=== PATIENT | female | born 1945 | race Caucasian/White ===

== ENCOUNTER 2017-05-23 15:10 | Emergency (ER) | payer MEDICARE, BC ==
[2017-05-23 15:33] VITALS: BP 111/86
--- NOTE | 2017-05-23 15:33 | UC ---
Skin Complaint HPI - HPI Summary HPI Summary: 71 y/o male presents to the urgent care c/o tick bite on the right wrist since yesterday. Pt was out hiking and at night time she noticed a red spot in RT wrist. Pt denies HX of tick bite, or HX of Lyme disease. Pt denies fever. ASHLEY, joint pain, SOB, chest pain, N/V/D - History of Current Complaint Time Seen by Provider: 05/23/17 15:30 Stated Complaint: TICK BITE Hx Obtained From: Patient Hx Last Menstrual Period: Pt menopausal ?: No Onset/Duration: Sudden Onset, Lasting Days - 1 day Skin Exposure Onset/Duration: Days Ago - 1 day Timing: Constant Onset Severity: Mild Current Severity: Mild Pain Intensity: 2 Pain Scale Used: 0-10 Numeric Location: Discrete - AT RT wrist Character: Redness Aggravating: Touch Alleviating: Nothing Associated Signs & Symptoms: Positive: Negative. Negative: Fever, Chills, Rash , Red Streaks Related History: Possible Reaction to: Insect - Allergy/Home Medications Allergies/Adverse Reactions: Allergies Allergy/AdvReac Type Severity Reaction Status Date / Time Fluoxetine [From [facility]] Allergy Unknown Verified 06/10/15 07:58 Reaction Details artificial sweetners Allergy Intermediate Difficulty Uncoded 06/10/15 07:58 Breathing/Wheezing Home Medications: Home Medications Alendronate TAB (NF) [Fosamax TAB (NF)] 10 mg PO DAILY 05/23/17 [History Confirmed 05/23/17] clonazePAM TAB(*) [Klonopin TAB(*)] 1 cap PO DAILY 05/23/17 [History Confirmed 05/23/17] Review of Systems Constitutional: Negative Skin: Rash - RT wrist with tick bite Eyes: Negative ENT: Negative Respiratory: Negative Cardiovascular: Negative Gastrointestinal: Negative Genitourinary: Negative Motor: Negative Neurovascular: Negative Musculoskeletal: Negative Neurological: Negative Psychological: Negative Is Patient Immunocompromised?: No All Other Systems Reviewed And Are Negative: Yes PMH/Surg Hx/FS Hx/Imm Hx Previously Healthy: Yes Other Endocrine History: Osteoporosis Psychological History: Depression - Surgical History Surgical History: Yes Surgery Procedure, Year, and Place: Tonsillectomy, appendectomy - Family History Known Family History: Positive: Cardiac Disease, Hypertension, Diabetes - Social History Alcohol Use: None Substance Use Type: None Smoking Status (MU): Never Smoked Tobacco Have You Smoked in the Last Year: No Physical Exam Triage Information Reviewed: Yes Appearance: Well-Appearing, No Pain Distress, Well-Nourished, Thin Vital Signs Reviewed: Yes Eye Exam: Normal Eyes: Positive: Conjunctiva Clear - PERRLA, EOMI, ENT Exam: Normal ENT: Positive: Normal ENT inspection, Hearing grossly normal, Pharynx normal, TMs normal Dental Exam: Normal Neck exam: Normal Neck: Positive: Supple, Nontender, No Lymphadenopathy Respiratory Exam: Normal Respiratory: Positive: Chest non-tender, Lungs clear, Normal breath sounds Cardiovascular Exam: Normal Cardiovascular: Positive: RRR, No Murmur, Pulses Normal Abdominal Exam: Normal Abdomen Description: Positive: Nontender, No Organomegaly, Soft. Negative: CVA Tenderness (R), CVA Tenderness (L) Bowel Sounds: Positive: Present Musculoskeletal Exam: Normal Musculoskeletal: Positive: Strength Intact, ROM Intact, No Edema Neurological Exam: Normal Psychological Exam: Normal Skin: Positive: rashes - RT wrist with a discrete erythematous rash s/p tick bite, non tender to palaption, no swelling observed, FROM of RT wrist. positive pulses,capillary refill brisk, positive sensation. Course/Dx - Course Course Of Treatment: 71 y/o male presents to the urgent care c/o tick bite on the right wrist since yesterday. Pt was out hiking and at night time she noticed a red spot in RT wrist. Pt denies HX of tick bite, or HX of Lyme disease. Pt denies fever. ASHLEY, joint pain SOB, chest pain, N/V/D. HX obtained. Pt with a discrete red rash s/p tick bite. No tick bite removed. Antibiotic prophylaxis with Doxycycline 200mg PO given to the patient to prevent lyme Disease.. Pt tolerated well medication. Pt advised to observe the area for the development or Erythema Migrans for upto 30 days following exposure. Components of the tick saliva can cause transient erythema that should not be confused with Erythema Migrans. Pt understood and agreed with D/C instructions and left the clinic ambulating. - Differential Diagnoses - Skin Complaint Differential Diagnoses: Abscess, Cellulitis, Local Allergic Reaction, Tick Born Illness, Other - bug bite. - Diagnoses Provider Diagnoses: 1- RT wrist rash s/p tick bite Discharge - Discharge Plan Condition: Stable Disposition: HOME Patient Education Materials: Tick Bite (ED) Referrals: Robin Kaufman MD [Primary Care Provider] - 1 Week Additional Instructions: 1-Please observe your body for the development or Erythema Migrans for up to 30 days following exposure. Components of the tick saliva can cause transient erythema that should not be confused with Erythema Migrans. Antibiotic prophylaxis with Doxycycline PO given today to prevent lyme Disease. 2- If ypou develop fever, joint pain or the bull's eye rash please return to the Urgent care or your PCP for further evaluation and treatment
[2017-05-23] MEDS ORDERED: DOXYcycline CAP(*) 100 MG PO ONE (15:57)
== END 2017-05-23 16:19 | disposition home or self-care (01) ==
LOC: UCEAST 15:10
DX: R21 Rash and other nonspecific skin eruption (principal); S60.861A Insect bite (nonvenomous) of right wrist, initial encounter; W57.XXXA Bitten or stung by nonvenomous insect and other nonvenomous arthropods, initial encounter; Y93.9 Activity, unspecified; Y92.9 Unspecified place or not applicable; Y99.9 Unspecified external cause status; F32.9 Major depressive disorder, single episode, unspecified
CPT/HCPCS: 99212; A9270-GY; G0463

== ENCOUNTER 2019-08-23 11:07 | Observation (INO) | payer MEDICARE, BC ==
--- NOTE | 2019-08-23 13:19 | ED ---
Back Pain - HPI Summary HPI Summary: Patient is a 73-year-old female who presents emergency department for low back pain 2 days. Patient does not recall any falls or injuries. Pain is located to low back and does not radiate. Patient resides at [facility] and fell on-call physician there today was noted to have fever and was referred to the ER. Patient denies associated symptoms of headache, cough, chest pain, shortness of breath, abdominal pain, vomiting, diarrhea, urinary symptoms. Patient denies numbness, tingling or weakness, bowel or bladder incontinence or retention, saddle paresthesias. Past medical history of bipolar disorder. Symptoms are moderate in severity. Movement makes symptoms worse. Nothing makes symptoms better. - History of Current Complaint Chief Complaint: EDBackInjuryPain Stated Complaint: BACK PAIN PER PT Time Seen by Provider: 08/23/19 13:18 Hx Obtained From: Patient Hx Last Menstrual Period: Pt menopausal Pain Intensity: 10 - Allergies/Home Medications Allergies/Adverse Reactions: Allergies Allergy/AdvReac Type Severity Reaction Status Date / Time fluoxetine Allergy Unknown Unknown Verified 08/24/19 00:44 Reaction Details triamcinolone Allergy Pain Verified 08/23/19 11:14 Home Medications: Home Medications Calcium Carb/Mag Ox/Zinc Sulf [Calcium & Magnesium + Zin 334-134-5 mg] 1 tab PO DAILY 08/24/19 [History Confirmed 08/24/19] Proventil Hfa 2 puff INH Q6H PRN 08/24/19 [History Confirmed 08/24/19] PMH/Surg Hx/FS Hx/Imm Hx Previously Healthy: Yes Endocrine/Hematology History: Denies: Hx Diabetes, Hx Thyroid Disease Cardiovascular History: Denies: Hx Hypertension, Other Cardiovascular Problems/Disorders Respiratory History: Reports: Hx Asthma Denies: Hx Chronic Obstructive Pulmonary Disease (COPD) GI History: Denies: Hx Ulcer, Other GI Disorders Musculoskeletal History: Denies: Hx Rheumatoid Arthritis, Hx Osteoporosis, Other Musculoskeletal History Sensory History: Reports: Hx Cataracts - JAVI, Hx Contacts or Glasses - GLASSES, Hx Hearing Aid - JAVI Opthamlomology History: Reports: Hx Cataracts - JAVI, Hx Contacts or Glasses - GLASSES Neurological History: Denies: Other Neuro Impairments/Disorders Psychiatric History: Reports: Hx Depression - ON MEDS - Cancer History Hx Chemotherapy: No Hx Radiation Therapy: No - Surgical History Surgery Procedure, Year, and Place: Tonsillectomy, appendectomy Hx Anesthesia Reactions: No Infectious Disease History: No Infectious Disease History: Denies: Hx Clostridium Difficile, Hx Hepatitis, Hx Human Immunodeficiency Virus (HIV), Hx of Known/Suspected MRSA, Hx Shingles, Hx Tuberculosis, Hx Known/ Suspected VRE, Hx Known/Suspected VRSA, History Other Infectious Disease, Traveled Outside the [place] in Last 30 Days - Family History Known Family History: Positive: None, Cardiac Disease, Hypertension, Diabetes - Social History Alcohol Use: None Substance Use Type: Reports: None Smoking Status (MU): Never Smoked Tobacco Have You Smoked in the Last Year: No Review of Systems Positive: Fever, Chills Eyes: Negative ENT: Negative Cardiovascular: Negative Negative: Palpitations, Chest Pain Respiratory: Negative Negative: Shortness Of Breath, Cough Gastrointestinal: Negative Negative: Abdominal Pain, Vomiting, Diarrhea Genitourinary: Negative Skin: Negative Neurological: Negative All Other Systems Reviewed And Are Negative: Yes Physical Exam Triage Information Reviewed: Yes Vital Signs On Initial Exam: Initial Vitals Temp Pulse Resp BP Pulse Ox 101.1 F 86 16 148/72 100 08/23/19 11:07 08/23/19 11:07 08/23/19 11:07 08/23/19 11:07 08/23/19 11:07 Vital Signs Reviewed: Yes Appearance: Positive: Well-Appearing - Pt. sitting in chair in NAD. Cheeks are flushed. present. Skin: Positive: Warm, Dry Head/Face: Positive: Normal Head/Face Inspection Eyes: Positive: Normal, EOMI, TIAGO Neck: Positive: Supple Respiratory/Lung Sounds: Positive: Clear to Auscultation, Breath Sounds Present Cardiovascular: Positive: Normal, RRR Abdomen Description: Positive: Nontender, Soft, Other: - Mild bilaterally CVA tenderness. Musculoskeletal: Positive: Normal, Strength/ROM Intact, Other - Low lumbar midline tenderness. Neurological: Positive: Normal, Alert, Oriented to Person Place, Time, CN Intact II-III Psychiatric: Positive: Affect/Mood Appropriate Diagnostics - Vital Signs Vital Signs Temp Pulse Resp BP Pulse Ox 08/23/19 11:07 101.1 F 86 16 148/72 100 - Laboratory Result Diagrams: 08/24/19 05:51 08/24/19 05:51 Lab Statement: Any lab studies that have been ordered have been reviewed, and results considered in the medical decision making process. Re-Evaluation - Re-Evaluation First Eval Change: Unchanged Comment: pain is fine, see feels that fever is returning Second Eval Re-Evaluation Time: 21:57 Comment: attempted to ambulate patient and unable to do so Back Pain Course/Dx - Course Course Of Treatment: Pt. with midline lumbar tenderness and fever. She does have mild bilateral CVA tenderness as well. No neurodeficits or evidence of cauda equina syndrome. Given fever, labs and ct ordered for further evaluation. Tylenol given for fever. CBC shows normal WBC. Minimally decreased Na and Cl. CXR negative for acute findings. CT per radiology: IMPRESSION: #. No CT findings to suggest presence of osteomyelitis discitis however MRI with IV. contrast would facilitate the most sensitive assessment if there is persistent clinical. concern. #. Multilevel degenerative spondylosis and facet joint osteoarthritis. #. Cholelithiasis. #. Prominent LEFT gonadal vein which may be secondary to incompetent venous valves or. pelvic congestion syndrome. Case discussed with Dr. Watkins. U/A postive RBCs without infection. Will obtain ct abd/pelvis to r/o urolithiasis. Pt. given a dose of IV morphine. Dr. Watkins recommends MRI with contrast to r/o epidural abscess/discitis. Pt. will be signed out to RONY Colin for MRI results and disposition. - Diagnoses Differential Diagnosis/HQI/PQRI: Positive: Arthritis, Epidural Abscess, Fracture , Herniated Disc, Neoplasm, Osteomyelitis, Renal Colic, Strain, Sprain Provider Diagnoses: Back pain, Fever Discharge ED - Sign-Out/Discharge Documenting (check all that apply): Sign-Out Patient Signing out patient TO: Ro Black - Discharge Plan Condition: Stable Disposition: ADMITTED TO [facility] - Billing Disposition and Condition Condition: STABLE Disposition: Admitted to [facility]
[2019-08-23] MEDS ORDERED: Acetaminophen TAB* 325 MG PO ONE ×2 (13:31→19:34)
[2019-08-23 14:25] LABS: ABS Lymphocytes 0.7 10^3/ul (1.0-4.8); ABS Monocytes 0.8 10^3/ul (0-0.8); ABS Neutrophils 6.1 10^3/ul (1.5-7.7); Eosinophil % 0.4 %; Hematocrit 40 % (35-47); Hemoglobin 13.8 g/dL (12.0-16.0); Lymphocyte % 8.9 %; Mean Corpuscular HGB Conc 34 g/dL (31-36); Mean Corpuscular Hemoglobin 33 pg (27-31); Mean Corpuscular Volume 96 fL (80-97); Mean Platelet Volume 9.5 fL (7.4-10.4); Platelet Count 186 10^3/uL (150-450); Red Blood Count 4.17 10^6 /uL (3.70-4.87); Red Cell Distribution Width 14 % (10-15); White Blood Count 7.7 10^3/uL (3.5-10.8)
--- OUTSIDE RECORDS SUMMARY | 2019-08-23 14:29 | XMS REPORT | Continuity of Care Document ---
:1945 External Reference #:[id number] Author Name Shana Skinner NP (transmitted by agent of provider Francesca Elena) Address [email or web address] [facility], [address] [place] [address] Care Team Providers Name Role Phone Beverly Verde MD - Internal Care Team Information Balance Sheet Analyst [phone] Medicine Charity Castillo MD - Internal Medicine Care Team Information Balance Sheet Analyst [phone] Problems Active Problems Provider Date Anxiety disorder Tri Marcum, N.P. Onset: 03/01/2018 Asthma Tri Marcum, N.P. Onset: 03/01/2018 Muscle weakness Tri Marcum, N.PThomas Onset: 03/01/2018 Social History Type Date Description Comments Sex Unknown Tobacco Use Start: Unknown Never Smoked Cigarettes Smoking Status Reviewed: 07/03/19 Never Smoked Cigarettes ETOH Use Never used alcohol Tobacco Use Start: Unknown Patient has never smoked Recreational Drug Use Never Used Drugs Exercise Type/Frequency Exercises regularly Allergies, Adverse Reactions, Alerts Active Allergies Reaction Severity Comments Date Prozac Severe 04/18/2019 Medications Active Medications SIG Qnty Indications Ordering Provider Date Flonase Allergy 1 spray in each 9.900ml J30.9 Tri Marcum, 01/24/2019 Relief nostril daily as N.P. 50mcg/Act needed Suspension Depakote ER 1 tab po qhs Unknown 500mg Tablets ER 24HR Juice Plus Fibre 6 caps po qam Unknown Liquid Proventil HFA 2 puffs as 6.700gm Tri Marcum, needed N.P. 108(90Base) mcg/Act Aerosol Bplehiu-Mzndvdbmx-Zzk 1 by mouth every Unknown c day 333-133-5mg Tablets [facility] Vitamin B12 1 by mouth 4x Unknown 1000mcg week Tablets D3 Super Strength take one Unknown capsule/tablet 2000Unit Capsules daily by mouth Immunizations Description No Information Available Vital Signs Date Vital Result Comment 07/03/2019 9:08am Height 64 inches 5'4" Weight 154.00 lb Heart Rate 72 /min BP Systolic Sitting 112 mmHg Lue regular cuff BP Diastolic Sitting 66 mmHg Lue regular cuff Respiratory Rate 12 /min O2 % BldC Oximetry 98 % BMI (Body Mass Index) 26.4 kg/m2 05/03/2019 12:36pm Height 64 inches 5'4" Weight 154.00 lb Heart Rate 68 /min BP Systolic Sitting 110 mmHg Lue regular cuff BP Diastolic Sitting 66 mmHg Lue regular cuff Respiratory Rate 16 /min O2 % BldC Oximetry 96 % BMI (Body Mass Index) 26.4 kg/m2 Results Test Date Facility Test Result H/L Range Note Laboratory test 04/30/2019 [facility] Gardnerella/Ye SEE RESULT 1, [address] ast: [place] [address] Dna [phone] Culture Genital & Sensitivity SEE RESULT BELOW 3 1 [id number] SEE RESULT BELOW Name: JONNY FERNÁNDEZ : [address]: Tri Marcum NP Acct: [id number] Unit: [id number] AGE: 73 Location: [facility] Re04/30/19 SEX: F Status: REG REF SPEC: [id number] HONG: 04/30/19-[address] [facility] [address]: Tri Marcum RISK ENGINEER REQ: [id number] RECD: 05/01/19-8316 EXPLICIT FAX#: [id number] STATUS: RES [facility] : Kat _ SOURCE: VAGINAL SPDESC: ORDERED: Genital Culture, Clint,Yeast DNA COMMENTS: [id number] QUERIES: Would you like to order Trichomonas Vaginalis testing? No Procedure Result Reported Site Genital Culture PENDING Gardnerella/Yeast: Vaginal DNA Final 05/02/19- 1612 ML Organism 1 Negative Gardnerella Organism 2 Negative Theodora The presence of G. vaginalis, although suggestive, is not diagnostic for bacterial vaginosis. Results should be interpreted in conjuction with other clinical and laboratory data available. Women with vaginal discharge should be evaluated for risk factors of cervicitis and pelvic inflammatory disease, toxic shock syndrome (S.aureus), and if present, evaluated for organisms not included in this assay such as N. gonorrhoeae, C. trachomatis, Mobiluncus, Mycoplasma and/or Prevotella. Mixed infections may occur. The performance of this test on patient specimens collected during or immediately after antimicrobial therapy is unknown. The presence or absence of Theodora species, or G. vaginalis cannot be used as a test for therapeutic success or failure. * - Main Lab . END OF REPORT DEPARTMENT OF PATHOLOGY, [address] [place] [address] Manuel Rubalcava M.D. Director [facility] # [id number] 3 SEE RESULT BELOW Name: JONNY FERNÁNDEZ : [address]: Tri Marcum NP Acct: [id number] Unit: [id number] AGE: 73 Location: [facility] Re04/30/19 SEX: F Status: REG REF SPEC: [id number] HONG: 04/30/19-[address]: Tri Marcum NP REQ: [id number] RECD: 05/01/19-1236 EXPLICIT FAX#: [id number] STATUS: BEVERLY GUILLERMO DR: Kat _ SOURCE: VAGINAL SPDESC: ORDERED: Genital Culture, Clint,Yeast DNA COMMENTS: [id number] QUERIES: Would you like to order Trichomonas Vaginalis testing? No Procedure Result Reported Site Genital Culture Final 05/03/19- 0914 ML Organism 1 NORMAL GIUSEPPE Quantity 3+ Routine genital cultures do not include selective agar for Neisseria gonorrhoeae. Molecular testing offers better test sensitivity and therefore is the preferred test methodology for identifying this organism. Gardnerella/Yeast: Vaginal DNA Final 05/02/19- 1612 ML Organism 1 Negative Gardnerella Organism 2 Negative Theodora The presence of G. vaginalis, although suggestive, is not diagnostic for bacterial vaginosis. Results should be interpreted in conjuction with other clinical and laboratory data available. Women with vaginal discharge should be evaluated for risk factors of cervicitis and pelvic inflammatory disease, toxic shock syndrome (S.aureus), and if present, evaluated for organisms not included in this assay such as N. gonorrhoeae, C. trachomatis, Mobiluncus, Mycoplasma and/or Prevotella. Mixed infections may occur. The performance of this test on patient specimens collected during or immediately after antimicrobial therapy is unknown. The presence or absence of Theodora species, or G. vaginalis cannot be used as a test for therapeutic success CONTINUED ON NEXT PAGE DEPARTMENT OF PATHOLOGY, [address] [place] [address] Manuel Rubalcava M.D. Director [facility] # [id number] Patient: JONNY FERNÁNDEZ [id number] (Continued) Specimen: [id number] Collected: 04/30/19-1529 Received: 05/01/19-1236 (Continued) Procedure Result Reported Site Gardnerella/Yeast: Vaginal DNA Final (continued) 05/02/19- 1612 or failure. * ML - Main Lab . END OF REPORT DEPARTMENT OF PATHOLOGY, [address] [place] [address] Manuel Rubalcava M.D. Director [facility] # [id number] Procedures Date Code Description Status 04/20/2019 74886 Sleep Study Unattended,HRT Rate,Oxygen Sat,Resp Completed Effort/Airflow Medical Devices Description No Information Available Encounters Type Date Location Provider Dx Diagnosis Office Visit 07/03/2019 [facility] Shana G47.33 Obstructive sleep 9:30a [facility] apnea (adult) Krissy (pediatric) R53.83 Other fatigue Office Visit 05/03/2019 [facility]ana G47.33 Obstructive sleep 1:00p [facility] apnea (adult) Krissy (pediatric) R53.83 Other fatigue Office Visit 04/30/2019 1:18p [facility] Nursing Tri Marcum, N76.0 Acute vaginitis Home N.P. Office Visit 04/18/2019 11:00a [facility] Wilma Merritt, R06.83 Snoring [facility] R53.83 Other fatigue Assessments Date Code Description Provider 07/03/2019 G47.33 Obstructive sleep apnea (adult) (pediatric) Shana Skinner NP 07/03/2019 R53.83 Other fatigue Shana Skinner NP 05/03/2019 G47.33 Obstructive sleep apnea (adult) (pediatric) Shana Skinner NP 05/03/2019 R53.83 Other fatigue Shana Skinner NP 04/30/2019 N76.0 Acute vaginitis Tri Marcum, N.P. 04/20/2019 G47.33 Obstructive sleep apnea (adult) (pediatric) Wilma Merritt MD 04/18/2019 R06.83 Snoring Wilma Merritt MD 04/18/2019 R53.83 Other fatigue Wilma Merritt MD 01/24/2019 J30.9 Allergic rhinitis, unspecified Mariam Brody NP Plan of Treatment Future Appointment(s):01/02/2020 10:30 am - Shana Skinner NP at [facility]07/03/2019 - Shana Skinner, NPG47.33 Obstructive sleep apnea (adult) (pediatric)Follow up:6 monthsRecommendations:If you have difficulty with your equipment, or need to replace your mask or hoses, please contact your homecare agency, [facility] . If you have any further questions, pleasecall the [facility] at If you have any sleepiness while driving you MUST avoid operating a vehicle or machinery. If you feel tired while driving, washing machine loader and puller and take a nap or switch drivers. If you know you are sleepy and need to go somewhere, arrange for a ride or use public transportation. It is very important to not risk your safety or the safety of others.R53.83 Other fatigue Functional Status Description No Information Available Mental Status Description No Information Available Referrals Description No Information Available
[2019-08-23 14:47] LABS: Albumin 4.6 g/dL (3.2-5.2); Albumin/Globulin Ratio 1.4 (1-3); BUN/Creatinine Ratio 32.1 (8-20); C Reactive Protein 99.58 mg/L (<8.01); Calcium 10.1 mg/dL (8.6-10.3); EGFR Non-African American 105.8 (>60); Globulin 3.4 g/dL (2-4); Total Bilirubin 0.6 mg/dL (0.2-1.0)
[2019-08-23] MEDS ORDERED: Morphine 4 MG/ML VIAL (1 ml) 4 MG/ML VIAL IV ONE ×2 (15:37→17:52)
[2019-08-23] MEDS ORDERED: Ondansetron INJ* 2 MG/ML VIAL IV ONE (15:37)
[2019-08-23 16:10] LABS: Urine Appearance Clear; Urine Bilirubin Negative (Negative); Urine Blood 1+ (Negative); Urine Color Yellow; Urine Glucose Negative (Negative); Urine Ketones 1+ (Negative); Urine Nitrite Negative (Negative); Urine Protein Negative (Negative); Urine Urobilinogen Negative (Negative)
[2019-08-23 16:15] LABS: Urine Bacteria Absent (Absent); Urine Red Blood Cell 3+(>10/hpf) (Absent); Urine Squamous Epithelial Cell Present (Absent); Urine White Blood Cell Trace(0-5/hpf) (Absent)
--- NOTE | 2019-08-23 18:26 | ED ---
Re-Evaluation - Re-Evaluation First Eval Change: Unchanged Comment: pain is fine, see feels that fever is returning Second Eval Re-Evaluation Time: 21:57 Comment: attempted to ambulate patient and unable to do so Course/Dx - Course Course Of Treatment: Pt. with midline lumbar tenderness and fever. She does have mild bilateral CVA tenderness as well. No neurodeficits or evidence of cauda equina syndrome. Given fever, labs and ct ordered for further evaluation. Tylenol given for fever. CBC shows normal WBC. Minimally decreased Na and Cl. CXR negative for acute findings. CT per radiology: IMPRESSION: #. No CT findings to suggest presence of osteomyelitis discitis however MRI with IV. contrast would facilitate the most sensitive assessment if there is persistent clinical. concern. #. Multilevel degenerative spondylosis and facet joint osteoarthritis. #. Cholelithiasis. #. Prominent LEFT gonadal vein which may be secondary to incompetent venous valves or. pelvic congestion syndrome. Case discussed with Dr. Watkins. U/A postive RBCs without infection. Will obtain ct abd/pelvis to r/o urolithiasis. Pt. given a dose of IV morphine. Dr. Watkins recommends MRI with contrast to r/o epidural abscess/discitis. MRI shows no epidural abscess. had degenerative changes. no source of fever found. likely viral. will attempt to ambulate patient. patient was unable to ambulate. discussed with dr fernandez who agrees to admit. - Diagnoses Provider Diagnoses: Back pain, Fever Discharge ED - Sign-Out/Discharge Documenting (check all that apply): Patient Departure, Sign-Out Patient Signing out patient TO: Miguel Jang - Discharge Plan Condition: Stable Disposition: ADMITTED TO [facility] - Billing Disposition and Condition Condition: STABLE Disposition: Admitted to [facility]
[2019-08-23] MEDS ORDERED: Gadoteridol* (CONTRAST) 279.3 MG/ML 10 ML IV ONE (18:54)
[2019-08-23] MEDS ORDERED: Cyclobenzaprine TAB* 10 MG PO ONE (22:12)
[2019-08-24] MEDS ORDERED: Albuterol 2.5 MG/3 ML NEB.SOL* (0.083%) INH PRN (00:24)
[2019-08-24] MEDS ORDERED: Cyclobenzaprine TAB* 10 MG PO PRN (00:27)
[2019-08-24] MEDS ORDERED: oxyCODONE TAB* 5 MG TAB PO PRN (00:30)
--- NOTE | 2019-08-24 00:33 | ADMNOTE ---
Subjective Interval History: H&P 73 yo female with history of bipolar disorder presenting with severe low back pain and a fever. Pt said this is the 3rd episode in her lifetime where she has had this severe pain that seems to go away with physical therapy. The pain is in her lower back, and she is unable to walk or even transfer out of bed. At the same time she has this high fever but with no other symptoms. No cough, no abdominal pain, no diarrhea, no sore throat. She had MRI of her back in the ED, no explanation for the fever, no explanation for the pain. In the past, she said the pain gradually improve with physical therapy. Family History: Unchanged from Admission Social History: Unchanged from Admission Past Medical History: Unchanged from Admission Review of Systems - Measurements Intake and Output: Intake and Output Last 24 Hours 08/21/19 08/22/19 08/23/19 08/24/19 06:59 06:59 06:59 06:59 Weight 149 lb - Review of Systems Constitutional Symptoms: Positive: Fever Negative: Weight Gain, Weight Loss, Weakness, Fatigue, Night Sweats, Unexplained Falls, Other Dermatology: Negative: Normal, Rash, Skin Lesions, Cancer, Skin Lumps, Other HEENT: Negative: Normal, Change in Hearing, Vertigo, Dental Problems, Tinnitus, Sinus Problem, Other Eyes: Negative: Normal, Change in Vision, Double Vision, Eye Pain, Glaucoma, Cataract, Contacts or Glasses, Other Thyroid: Negative: Normal, Goiter, Thyroid Nodule, Cold Intolerance, Heat Intolerance , Sweatiness, Tremor, Frequent Defecation, Constipation, Palpitations, Primary Hypothyroidism, Primary Hyperthyroidism, Weight Loss, Weight Gain, Change in Skin/Hair, Change in Menstruation, Radiation Exposure, Other Pulmonary: Negative: Normal, Cough, Sputum, Hemoptysis, Wheezing, Respiratory Distress, Shortness of Breath, COPD, Asthma, Exercise Intolerance, Home Oxygen, Other Cardiology: Negative: Normal, Chest Pain, Shortness of Breath, Palpitations, Swelling of Ankles, Peripheral Vascular Dis, Edema, Faintness, Syncope, Claudication, Proximal NocturnalDyspnea, Orthopnoea, Other Gastroenterology: Negative: Normal, Abdominal Pain, Nausea, Vomiting, Anorexia, Indigestion, Difficulty Swallowing, Heartburn, Constipation, Diarrhea, Blood in Stools, Change in Bowel Habits, Haematemesis, Melena, Other Genital - Urinary: Negative: Normal, Dysuria, Hematuria, Polyuria, Nocturia, Other Genitourinay - Female: Negative: Menses Normal, Vaginal Discharge, Menopause, Dysmenorrhea, Other Musculoskeletal: Negative: Joint Pain, Joint Stiffness, Arthritis, Osteoporosis, Low Back Pain , Sciatica, Joint Deformities, Kyphoscoliosis, Other Endocrinology: Negative: Normal, Thyroid Problems, Adrenal Problems, Gonadal Problems, Family Hx Endocrine Disorders, Obesity, Diabetes Mellitus, Hyperglycemia, Hx Hypoglycemia, Diabetic Foot Ulcers, Calluses, Hirsutism, Menstrual Abnormalities , Polydipsia, Polyuria, Gonadal Problems, Gynecomastia, Pituitary disease, Other Hematologic/Lymphatic: Negative: Anemia, Easy Bruising, Hx Leukemia, Hx Lymphoma, Use of Anticoagulant, Use of Antiplatelet Drugs, Other Neurology: Negative: Normal, Headache, Migraines, Change in Vision, Diplopia, Dizziness , Change in Balancing, Change in Coordination, Change in Memory, Change in Speech, Change in Sphincter Function, Change in Walking, Numbness\Paresthesiae, Unexplained Weakness, Hx of Stroke\TIA, Hx of Seizures, Other Objective Active Medications: Albuterol (Ventolin 2.5 Mg/3 Ml Neb.Aileen*) 2.5 mg INH [id number] AWAKE PRN PRN Reason: sob/wheezing Cyclobenzaprine HCl (Flexeril Tab*) 10 mg PO TID PRN PRN Reason: SPASMS - BACK Heparin Sodium (Porcine) (Heparin Vial(*)) 5,000 units SUBCUT Q8HR [facility] Oxycodone HCl (Oxycodone Tab(Nf)) 5 mg PO Q6H PRN PRN Reason: PAIN - SEVERE Vital Signs - 8 hr 08/23/19 08/23/19 08/23/19 18:06 20:15 22:56 Temperature 98.0 F 97.8 F Pulse Rate 75 70 Respiratory 16 18 18 Rate Blood Pressure 112/60 137/72 (mmHg) O2 Sat by Pulse 95 97 Oximetry 08/23/19 08/23/19 23:40 23:41 Temperature Pulse Rate 74 73 Respiratory Rate Blood Pressure 130/78 (mmHg) O2 Sat by Pulse 97 98 Oximetry Oxygen Devices in Use Now: None Appearance: NID Eyes: No Scleral Icterus, PERRLA Ears/Nose/Mouth/Throat: NL Teeth, Lips, Gums, Mucous Membranes Moist Neck: NL Appearance and Movements; NL JVP, Trachea Midline Respiratory: Symmetrical Chest Expansion and Respiratory Effort, Clear to Auscultation, Clear to Percussion Cardiovascular: NL Sounds; No Murmurs; No JVD, No Edema Abdominal: NL Sounds; No Tenderness; No Distention, No Hepatosplenomegaly Lymphatic: No Cervical Adenopathy Extremities: No Edema, No Clubbing, Cyanosis, - - any movement of her lower EXTs passive or active hurts her lower back Skin: No Rash or Ulcers, No Nodules or Sclerosis Neurological: Alert and Oriented x 3, - - unable to evaluate her strength due to pain Result Diagrams: 08/24/19 05:51 08/24/19 05:51 Assess/Plan/Problems-Billing Assessment: - Patient Problems (1) Acute exacerbation of chronic low back pain Current Visit: Yes Status: Acute Code(s): M54.5 - LOW BACK PAIN; G89.29 - OTHER CHRONIC PAIN SNOMED Code(s): 136027420 Comment: -MRI Lumbar spine with DJD and no e/o infection or herniation -flexeril, PT -fever is of unknown origin, low suspicion for an infection. Her inflammation markers are elevated. (2) Asthma Current Visit: Yes Status: Acute Code(s): J45.909 - UNSPECIFIED ASTHMA, UNCOMPLICATED SNOMED Code(s): 689355528 Comment: -PRN Ventolin (3) Bipolar 1 disorder Current Visit: Yes Status: Acute Code(s): F31.9 - BIPOLAR DISORDER, UNSPECIFIED SNOMED Code(s): 176239367 Comment: -Continue depatoke (4) DVT prophylaxis Current Visit: Yes Status: Acute Code(s): Z29.9 - ENCOUNTER FOR PROPHYLACTIC MEASURES, UNSPECIFIED SNOMED Code(s): 989414944 Comment: -SQ (5) Full code status Current Visit: Yes Status: Acute Code(s): Z78.9 - OTHER SPECIFIED HEALTH STATUS SNOMED Code(s): 206642058
[2019-08-24 06:02] LABS: ABS Eosinophils 0.1 10^3/ul (0-0.6); ABS Lymphocytes 1.1 10^3/ul (1.0-4.8); ABS Monocytes 0.9 10^3/ul (0-0.8); ABS Neutrophils 4.6 10^3/ul (1.5-7.7); Eosinophil % 0.8 %; Hematocrit 34 % (35-47); Hemoglobin 11.9 g/dL (12.0-16.0); Lymphocyte % 16.4 %; Mean Corpuscular HGB Conc 35 g/dL (31-36); Mean Corpuscular Hemoglobin 34 pg (27-31); Mean Corpuscular Volume 97 fL (80-97); Mean Platelet Volume 9.3 fL (7.4-10.4); Platelet Count 160 10^3/uL (150-450); Red Blood Count 3.51 10^6 /uL (3.70-4.87); Red Cell Distribution Width 13 % (10-15); White Blood Count 6.7 10^3/uL (3.5-10.8)
[2019-08-24] MEDS: Heparin VIAL(*) 5000 UNITS/ML VIAL (FIVE THOUSAND) SUBCUT SCH ×3 (06:03→22:16)
[2019-08-24 06:20] LABS: BUN/Creatinine Ratio 29.4 (8-20); Calcium 8.9 mg/dL (8.6-10.3); EGFR African American 142.6 (>60); EGFR Non-African American 117.9 (>60); Potassium 3.9 mmol/L (3.5-5.0)
[2019-08-24 06:40] LABS: TSH (Thyroid Stimulating Horm) 2.46 mcIU/mL (0.34-5.60)
--- NOTE | 2019-08-24 08:30 | PN ---
Subjective Date of Service: 08/24/19 Interval History: HD1 on 08/24 73F PMH Bipolar d/o, chronic hypONa, osteopenia, asthma, who presented with acute on CLBP and fever (possibly from UTI with hematuria, possibly viral) Admitted overnight, TMax 101.1 x1, no other elevated SIRS Labs-all normal CXR-Neg UA-Possible UTI, CTAP-Neg CT Spine-No e/o discitis, ?prominent L gonadal vein MRI Lumbar spine: e/o pronounced DJD. No epidural abscess, sign of disk herniation or cord involvement This morning, seen in bed, she has odd affect but understands she is here for back pain and possible UTI, we discuss mechanism, likely DJD and possible UTI. She is willing to work with PT. Pain in back is lower starts in center and radiates out to both flanks, worse with movement and touching paraspinal muscles. She is able to perform strength testing in lower extremities only after coaching but has 5/5 in flexion and extension quads, calves, and blt lower feet once distracted from pain, sensation intact. She denies CP SOB GI or other complaints. Objective Active Medications: Albuterol (Ventolin 2.5 Mg/3 Ml Neb.Aileen*) 2.5 mg INH [id number] AWAKE PRN PRN Reason: sob/wheezing Cyclobenzaprine HCl (Flexeril Tab*) 10 mg PO TID PRN PRN Reason: SPASMS - BACK Heparin Sodium (Porcine) (Heparin Vial(*)) 5,000 units SUBCUT Q8HR [facility] Last Admin: 08/24/19 06:03 Dose: 5,000 units Oxycodone HCl (Roxycodone Tab*) 5 mg PO Q6H PRN PRN Reason: PAIN - SEVERE Vital Signs - 8 hr 08/24/19 08/24/19 08/24/19 00:41 01:00 01:13 Temperature 97.8 F Pulse Rate 76 70 70 Respiratory 16 Rate Blood Pressure 101/58 97/51 (mmHg) O2 Sat by Pulse 92 93 94 Oximetry 08/24/19 01:44 Temperature 97.3 F Pulse Rate 68 Respiratory 16 Rate Blood Pressure 110/57 (mmHg) O2 Sat by Pulse 98 Oximetry Oxygen Devices in Use Now: None Appearance: Well appearing woman in NAD Eyes: No Scleral Icterus Ears/Nose/Mouth/Throat: NL Teeth, Lips, Gums, Clear Oropharnyx Neck: NL Appearance and Movements; NL JVP Respiratory: Symmetrical Chest Expansion and Respiratory Effort, Clear to Auscultation Cardiovascular: NL Sounds; No Murmurs; No JVD, RRR Abdominal: NL Sounds; No Tenderness; No Distention, No Hepatosplenomegaly, - - No TTP to suprapubic no CVA Tenderness Lymphatic: No Cervical Adenopathy Extremities: No Edema, - - 5/5 strengthin blt LE after coaching (see HPI) Skin: No Rash or Ulcers Neurological: Alert and Oriented x 3, NL Sensation, NL Muscle Strength and Tone , - - Did not assess gait, does hvae TTP to paraspinal muscles at lumbar spine, thoracic and cervical spine testing normal Result Diagrams: 08/24/19 05:51 08/24/19 05:51 Diagnostic Imaging: CXR-Neg CTAP-Neg CT Spine-No e/o discitis, ?prominent L gonadal vein from pelvic congestion MRI Lumbar spine: e/o pronounced DJD. No epidural abscess, sign of disk herniation or cord involvement Assess/Plan/Problems-Billing Assessment: 73F PMH Bipolar d/o, chronic hypONa, osteopenia, asthma, who presented with acute on CLBP and fever (possibly from UTI with hematuria, possibly viral) - Patient Problems (1) Fever Current Visit: Yes Status: Acute Code(s): R50.9 - FEVER, UNSPECIFIED SNOMED Code(s): 985021226 Comment: -x1 to 101, pt reports hx of back pain with fever -Hematuria on UA, suspect UTI, CTX x1, monitor culture data, could also consider viral -No e/o sepsis (2) Acute exacerbation of chronic low back pain Current Visit: Yes Status: Acute Code(s): M54.5 - LOW BACK PAIN; G89.29 - OTHER CHRONIC PAIN SNOMED Code(s): 379564929 Comment: -MRI Lumbar spine with DJD and no e/o infection or herniation, no neurologic compromise on exam -Start toradol, lidocaine patch, flexeril for pain -PT (3) Bipolar 1 disorder Current Visit: Yes Status: Acute Code(s): F31.9 - BIPOLAR DISORDER, UNSPECIFIED SNOMED Code(s): 161569062 Comment: -Continue depatoke (4) Asthma Current Visit: Yes Status: Acute Code(s): J45.909 - UNSPECIFIED ASTHMA, UNCOMPLICATED SNOMED Code(s): 592932211 Comment: -PRN Ventolin (5) Hyponatremia Current Visit: Yes Status: Acute Code(s): E87.1 - HYPO-OSMOLALITY AND HYPONATREMIA SNOMED Code(s): 69839069 Comment: -Chronic (6) DVT prophylaxis Current Visit: Yes Status: Acute Code(s): Z29.9 - ENCOUNTER FOR PROPHYLACTIC MEASURES, UNSPECIFIED SNOMED Code(s): 933482599 Comment: -[facility] (7) Full code status Current Visit: Yes Status: Acute Code(s): Z78.9 - OTHER SPECIFIED HEALTH STATUS SNOMED Code(s): 726131574 Status and Disposition: Monitoring for fever and pain control if stable with PT and pain controlled on NSAID , could send home on empiric ABX for UTI
[2019-08-24] MEDS ORDERED: Ketorolac INJ* 30 MG/ML 1 ML VIAL IV PUSH PRN (08:32)
[2019-08-24] MEDS ORDERED: Albuterol HFA INHALER* 8 gm MDI INH PRN (08:35)
[2019-08-24] MEDS: Cholecalciferol TAB* 1000 UNITS PO SCH (10:01)
[2019-08-24] MEDS: Lidocaine PATCH 5%* 1 PATCH TRANSDERM SCH (10:51)
[2019-08-24] MEDS: cefTRIAXone(*) 1 GM in NS 0.9% 50 ML* 50 ML IVPB SCH (10:51)
[2019-08-24] MEDS: Ketorolac INJ* 30 MG/ML 1 ML VIAL IV PUSH SCH ×3 (10:54→22:15)
[2019-08-24] MEDS: Divalproex ER TAB(*) 500 MG PO SCH (16:54)
[2019-08-24] MEDS: Lidocaine Patch REMOVE* 1 NOTE MISC SCH (22:16)
[2019-08-25] MEDS: Heparin VIAL(*) 5000 UNITS/ML VIAL (FIVE THOUSAND) SUBCUT SCH ×3 (06:07→21:54)
[2019-08-25] MEDS ORDERED: Ketorolac INJ* 30 MG/ML 1 ML VIAL IV PUSH PRN (08:32)
--- NOTE | 2019-08-25 08:33 | PN ---
Subjective Date of Service: 08/25/19 Interval History: HD2 on 08/25 73F PMH Bipolar d/o, chronic hypONa, osteopenia, asthma, who presented with acute on CLBP and fever (possibly from UTI with hematuria, possibly viral) VSS-No futher fever Labs-all normal CXR-Neg UA-Possible UTI, though Cx NEG today CTAP-Neg CT Spine-No e/o discitis, ?prominent L gonadal vein MRI Lumbar spine: e/o pronounced DJD. No epidural abscess, sign of disk herniation or cord involvement Worked with PT yesterday, needing gait belt still This morning, seen eating breakfast, reports back pain improving, able to get out of bed to chair, tolerating diet, no BM yet, no further fevers or urinary sx. Denies other complaints or issues, no questions at this time. Family History: Unchanged from Admission Social History: Unchanged from Admission Past Medical History: Unchanged from Admission Objective Active Medications: Albuterol (Ventolin 2.5 Mg/3 Ml Neb.Aileen*) 2.5 mg INH [id number] AWAKE PRN PRN Reason: sob/wheezing Albuterol (Ventolin Hfa Inhaler*) 2 puff INH Q6H PRN PRN Reason: SOB/WHEEZING Cholecalciferol (Vitamin D Tab*) 1,000 units PO DAILY [facility] Last Admin: 08/24/19 10:01 Dose: 1,000 units Cyclobenzaprine HCl (Flexeril Tab*) 10 mg PO TID PRN PRN Reason: SPASMS - BACK Last Admin: 08/24/19 10:00 Dose: 10 mg Divalproex Sodium (Depakote Er Tab(*)) 500 mg PO QPM [facility] Last Admin: 08/24/19 16:54 Dose: 500 mg Heparin Sodium (Porcine) (Heparin Vial(*)) 5,000 units SUBCUT Q8HR [facility] Last Admin: 08/25/19 06:07 Dose: 5,000 units Ceftriaxone Sodium 1 gm/ (Sodium Chloride) 50 mls @ 100 mls/hr IVPB Q24H [facility] Last Admin: 08/24/19 10:51 Dose: 100 mls/hr Lidocaine (Lidoderm 5% Patch*) 1 patch TRANSDERM DAILY [facility] Last Admin: 08/24/19 10:51 Dose: 1 patch Pharmacy Profile Note (Lidocaine Patch Remove*) 1 note N/A 2100 [facility] Last Admin: 08/24/19 22:16 Dose: 1 note Vital Signs - 8 hr 08/25/19 03:26 Temperature 97.4 F Pulse Rate 70 Respiratory 16 Rate Blood Pressure 113/56 (mmHg) O2 Sat by Pulse 99 Oximetry Oxygen Devices in Use Now: None Appearance: Well appearing woman in NAD Eyes: No Scleral Icterus Ears/Nose/Mouth/Throat: NL Teeth, Lips, Gums Neck: NL Appearance and Movements; NL JVP Respiratory: Symmetrical Chest Expansion and Respiratory Effort, Clear to Auscultation Cardiovascular: NL Sounds; No Murmurs; No JVD, RRR Abdominal: NL Sounds; No Tenderness; No Distention, No Hepatosplenomegaly Lymphatic: No Cervical Adenopathy Extremities: No Edema Skin: No Rash or Ulcers Neurological: Alert and Oriented x 3 Result Diagrams: 08/24/19 05:51 08/24/19 05:51 Microbiology and Other Data: Microbiology 08/23/19 15:06 Urine Culture - Final Urine Diagnostic Imaging: CXR-Neg CTAP-Neg CT Spine-No e/o discitis, ?prominent L gonadal vein from pelvic congestion MRI Lumbar spine: e/o pronounced DJD. No epidural abscess, sign of disk herniation or cord involvement Assess/Plan/Problems-Billing Assessment: 73F PMH Bipolar d/o, chronic hypONa, osteopenia, asthma, who presented with acute on CLBP and fever, assumed to be virla vs transient fever in setting of possible urinary retention. - Patient Problems (1) Fever Current Visit: Yes Status: Resolved Code(s): R50.9 - FEVER, UNSPECIFIED SNOMED Code(s): 494694871 Comment: -x1 to 101, pt reports hx of back pain with fever -Hematuria on UA, though cx neg, perhaps all viral. -No e/o sepsis -Stop abx today (2) Acute exacerbation of chronic low back pain Current Visit: Yes Status: Acute Code(s): M54.5 - LOW BACK PAIN; G89.29 - OTHER CHRONIC PAIN SNOMED Code(s): 101084769 Comment: -MRI Lumbar spine with DJD and no e/o infection or herniation, no neurologic compromise on exam -Start toradol, lidocaine patch, flexeril for pain, improving but remains in hospital for intractable pain -PT (3) Bipolar 1 disorder Current Visit: Yes Status: Acute Code(s): F31.9 - BIPOLAR DISORDER, UNSPECIFIED SNOMED Code(s): 307549634 Comment: -Continue depatoke (4) Asthma Current Visit: Yes Status: Acute Code(s): J45.909 - UNSPECIFIED ASTHMA, UNCOMPLICATED SNOMED Code(s): 958375485 Comment: -PRN Ventolin (5) Hyponatremia Current Visit: Yes Status: Acute Code(s): E87.1 - HYPO-OSMOLALITY AND HYPONATREMIA SNOMED Code(s): 93152272 Comment: -Chronic (6) DVT prophylaxis Current Visit: Yes Status: Acute Code(s): Z29.9 - ENCOUNTER FOR PROPHYLACTIC MEASURES, UNSPECIFIED SNOMED Code(s): 894102083 Comment: -SQ (7) Full code status Current Visit: Yes Status: Acute Code(s): Z78.9 - OTHER SPECIFIED HEALTH STATUS SNOMED Code(s): 473457548 Status and Disposition: Monitoring for fever and pain control if stable with PT and pain controlled on NSAID , could send home when PT is able
[2019-08-25] MEDS: Cholecalciferol TAB* 1000 UNITS PO SCH (08:47)
[2019-08-25] MEDS: cefTRIAXone(*) 1 GM in NS 0.9% 50 ML* 50 ML IVPB SCH ×2 (08:47→09:37)
[2019-08-25] MEDS: Lidocaine PATCH 5%* 1 PATCH TRANSDERM SCH (08:47)
[2019-08-25] MEDS: Divalproex ER TAB(*) 500 MG PO SCH (16:24)
[2019-08-25] MEDS: Lidocaine Patch REMOVE* 1 NOTE MISC SCH (21:55)
[2019-08-26] MEDS: Heparin VIAL(*) 5000 UNITS/ML VIAL (FIVE THOUSAND) SUBCUT SCH ×3 (06:18→21:31)
[2019-08-26] MEDS: Cholecalciferol TAB* 1000 UNITS PO SCH (08:04)
[2019-08-26] MEDS: Lidocaine PATCH 5%* 1 PATCH TRANSDERM SCH (08:04)
--- NOTE | 2019-08-26 12:33 | PN ---
Subjective Date of Service: 08/26/19 Interval History: HD3 on 08/26 73F PMH Bipolar d/o, chronic hypONa, osteopenia, asthma, who presented with acute on CLBP and fever (likely viral) VSS-No futher fever Labs-all normal CXR-Neg UA-Neg Urine Cx, Abx held, no further fever CTAP-Neg CT Spine-No e/o discitis, ?prominent L gonadal vein-benign MRI Lumbar spine: e/o pronounced DJD. No epidural abscess, sign of disk herniation or cord involvement This morning, seen eating lunch, reports back pain improving now down to 3/10 from 6/10, able to get out of bed to chair, tolerating diet, +BM yesterday, no further fevers or urinary sx. Denies other complaints or issues, no questions at this time. feels she is still need assisted living, though according to her they will have another discussion when he comes to visit today , if he feels comfortable with her at home she can go today. Family History: Unchanged from Admission Social History: Unchanged from Admission Past Medical History: Unchanged from Admission Objective Active Medications: Albuterol (Ventolin 2.5 Mg/3 Ml Neb.Aileen*) 2.5 mg INH [id number] AWAKE PRN PRN Reason: sob/wheezing Albuterol (Ventolin Hfa Inhaler*) 2 puff INH Q6H PRN PRN Reason: SOB/WHEEZING Cholecalciferol (Vitamin D Tab*) 1,000 units PO DAILY [facility] Last Admin: 08/26/19 08:04 Dose: 1,000 units Cyclobenzaprine HCl (Flexeril Tab*) 10 mg PO TID PRN PRN Reason: SPASMS - BACK Last Admin: 08/24/19 10:00 Dose: 10 mg Divalproex Sodium (Depakote Er Tab(*)) 500 mg PO QPM [facility] Last Admin: 08/25/19 16:24 Dose: 500 mg Heparin Sodium (Porcine) (Heparin Vial(*)) 5,000 units SUBCUT Q8HR [facility] Last Admin: 08/26/19 06:18 Dose: 5,000 units Ketorolac Tromethamine (Toradol Inj*) 30 mg IV PUSH Q6H PRN PRN Reason: PAIN - MODERATE Stop: 08/30/19 08:31 Lidocaine (Lidoderm 5% Patch*) 1 patch TRANSDERM DAILY [facility] Last Admin: 08/26/19 08:04 Dose: 1 patch Pharmacy Profile Note (Lidocaine Patch Remove*) 1 note N/A 2100 [facility] Last Admin: 08/25/19 21:55 Dose: 1 note Vital Signs - 8 hr 08/26/19 07:43 Temperature 98.2 F Pulse Rate 69 Respiratory 19 Rate Blood Pressure 113/50 (mmHg) O2 Sat by Pulse 100 Oximetry Oxygen Devices in Use Now: None Appearance: Pleasant woman in NAD Eyes: No Scleral Icterus Ears/Nose/Mouth/Throat: NL Teeth, Lips, Gums Neck: NL Appearance and Movements; NL JVP Respiratory: Symmetrical Chest Expansion and Respiratory Effort, Clear to Auscultation Cardiovascular: NL Sounds; No Murmurs; No JVD, RRR Abdominal: NL Sounds; No Tenderness; No Distention, No Hepatosplenomegaly Lymphatic: No Cervical Adenopathy Extremities: No Edema Skin: No Rash or Ulcers Neurological: Alert and Oriented x 3 Result Diagrams: 08/24/19 05:51 08/24/19 05:51 Microbiology and Other Data: Microbiology 08/23/19 15:06 Urine Culture - Final Urine Diagnostic Imaging: CXR-Neg CTAP-Neg CT Spine-No e/o discitis, ?prominent L gonadal vein from pelvic congestion MRI Lumbar spine: e/o pronounced DJD. No epidural abscess, sign of disk herniation or cord involvement Assess/Plan/Problems-Billing Assessment: 73F PMH Bipolar d/o, chronic hypONa, osteopenia, asthma, who presented with acute on CLBP and fever, assumed to be viral vs transient fever in setting of possible urinary retention. - Patient Problems (1) Fever Current Visit: Yes Status: Resolved Code(s): R50.9 - FEVER, UNSPECIFIED SNOMED Code(s): 635503477 Comment: -x1 to 101 on admission, none since -Hematuria on UA, though cx neg, perhaps all viral vs transient fever from urinary retention -No e/o sepsis -x1 dose CTX (2) Acute exacerbation of chronic low back pain Current Visit: Yes Status: Acute Code(s): M54.5 - LOW BACK PAIN; G89.29 - OTHER CHRONIC PAIN SNOMED Code(s): 513367211 Comment: -MRI Lumbar spine with DJD and no e/o infection or herniation, no neurologic compromise on exam -Transition to oral Naproxen standing, lidocine and flexeril, tylnol PRN for breakthru -If she feels well enough can return to home, if feels care burden to great to go to [facility] assisted living tomorrow 08/27 -PT (3) Bipolar 1 disorder Current Visit: Yes Status: Acute Code(s): F31.9 - BIPOLAR DISORDER, UNSPECIFIED SNOMED Code(s): 479732344 Comment: -Continue depatoke (4) Asthma Current Visit: Yes Status: Acute Code(s): J45.909 - UNSPECIFIED ASTHMA, UNCOMPLICATED SNOMED Code(s): 272930461 Comment: -PRN Ventolin (5) Hyponatremia Current Visit: Yes Status: Acute Code(s): E87.1 - HYPO-OSMOLALITY AND HYPONATREMIA SNOMED Code(s): 85683857 Comment: -Chronic (6) DVT prophylaxis Current Visit: Yes Status: Acute Code(s): Z29.9 - ENCOUNTER FOR PROPHYLACTIC MEASURES, UNSPECIFIED SNOMED Code(s): 251501310 Comment: -[facility] (7) Full code status Current Visit: Yes Status: Acute Code(s): Z78.9 - OTHER SPECIFIED HEALTH STATUS SNOMED Code(s): 550041188 Status and Disposition: Stable to be d/c todya or tomorrow pending social needs
[2019-08-26] MEDS ORDERED: Acetaminophen TAB* 325 MG PO PRN (16:16)
[2019-08-26] MEDS: Naproxen TAB* 250 MG PO SCH (16:50)
[2019-08-26] MEDS: Divalproex ER TAB(*) 500 MG PO SCH (16:51)
[2019-08-26] MEDS: Lidocaine Patch REMOVE* 1 NOTE MISC SCH (21:32)
--- NOTE | 2019-08-26 22:29 | DS ---
CC: Dr. Charity Castillo; [facility] * DISCHARGE SUMMARY: DATE OF ADMISSION: 08/23/19 ANTICIPATED DATE OF DISCHARGE: 08/27/19 PRIMARY CARE PROVIDER: Dr. Charity Castillo. DISPOSITION AT THE TIME OF DISCHARGE: Stable to be discharged to [facility]. She resided independently before. PRIMARY DIAGNOSES: 1. Acute on chronic low back pain. 2. Fever with no evidence of acute infection. SECONDARY DIAGNOSES: 1. Bipolar I disorder, well controlled on Depakote. 2. Chronic hyponatremia. 3. Osteopenia. 4. Asthma. MEDICATIONS AT THE TIME OF DISCHARGE: 1. Calcium, magnesium, and zinc tablet, 1 tablet p.o. daily. 2. Nutritional supplements 6 caps p.o. daily. 3. Vitamin B12 1000 mcg p.o. every day. 4. Vitamin D 1000 units p.o. daily. 5. Depakote 500 mg p.o. q.p.m. 6. Proventil 2 puffs inhaled q.6 hours. 7. Naproxen 500 mg p.o. q.12 hours p.r.n. 8. Lidocaine patch applied to right lower back 1 patch q. day to be removed after 12 hours daily p.r.n. 9. Flexeril 10 mg p.o. t.i.d. p.r.n. HISTORY OF PRESENT ILLNESS AND HOSPITAL COURSE: A 73-year-old female, who resides at [facility] with her , who presented to the emergency room on 08/23/19 with report of back pain and a fever. The patient reports this is the third episode in her lifetime where she had severe back pain that was responsive with physical therapy. The pain she reports is in her lower back and at time of presentation, she was unable to walk or even transfer out of the bed. At the same time, she reports she had a high fever, but no cough, abdominal pain, diarrhea, or sore throat. In the emergency room, she had a T-max of 101, but no associated tachycardia and other vital signs were stable. Imaging done in the emergency room included a chest x-ray, which was unremarkable. A lumbar spine CT, which was unremarkable, and abdomen and pelvis CT, which was unremarkable, and a lumbar spine MRI that showed degenerative disk disease, but no evidence of epidural abscess or infection. Labs showed no evidence of leukocytosis and a mildly elevated CRP at 99 and an ESR that was low at 27. Urinalysis was done, which showed blood and ketones, but otherwise is unremarkable. She was admitted to the hospitalist service under observation and her hospital course by problem is as follows: 1. Acute on chronic low back pain. This is presumed to be from degenerative disk disease as there was no evidence of other pathology on MRI of lumbar spine and her musculoskeletal exam is most consistent with tenderness to paraspinal muscles at the lumbar spine. She has no neurologic deficits and 5/5 strength in all of her lower extremities. She has no paresthesias or associated bladder or bowel incontinence that would be concerning for red flag findings. She did very well, starting on nonsteroidal antiinflammatory medication, was given scheduled Toradol, and then transitioned to as needed Tylenol, naproxen. Her pain diminished to the point she was able to transfer independently and we recommend that she follows with Physical Therapy, who saw the patient on , and she will be discharged to the assisted living component of [facility] while she receives physical therapy until she returns to her baseline. 2. Fever. The patient had a fever x1 in the emergency room. Her urinalysis was negative. Blood cultures were negative. Chest x-ray showed no evidence of acute infection, possible this fever was viral in origin, or it is possible that her back spasms caused some temporary urinary retention, which would have caused her hematuria, and possible fever associated with urinary retention, which is most likely explanation. If the patient has recurrent fever, she should return to primary care for continued workup as her infectious workup during this hospitalization was negative. 3. Hematuria. The patient had mild hematuria on this hospitalization and never gross hematuria, is microscopic. She can follow up with Urology if Dr. Castillo feels this is appropriate. She is asymptomatic, had no dysuria, frequency, urgency, or new complaints. 4. Bipolar disorder. She is kept on her home medications without any complications or behavioral issues. 5. Asthma. P.r.n. Ventolin is offered to her. She had no acute exacerbation. 6. Hyponatremia. 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 Her sodium at discharge is 133. 7. DVT prophylaxis. The patient was offered heparin subcutaneous. 8. Disposition on day of discharge: The patient is ambulating with walker, feeding herself, and is stable to be discharged with further followup PT. She has no further fevers. Plan of care was discussed with the patient and her , they have no further questions. LABS AND STUDIES DONE DURING THIS HOSPITALIZATION: Labs on 08/24/19, showed white blood cell count of 6.7, hemoglobin 11.9, hematocrit 34, platelets 160. Chemistry showed sodium 133, potassium 3.9, chloride 101, carbon dioxide 25, anion gap 7, BUN 15, creatinine 0.5, glucose 98, TSH 2.46. Imaging included chest x-ray, on 08/23/19, showed no intrathoracic pathology of lumbar spine CT on 08/23/19, which showed multilevel degenerative spondylolisthesis and facet joint osteoarthritis, cholelithiasis, a prominent left gonadal vein which may be secondary to incompetent venous valves or pelvic congestion syndrome. An abdomen/pelvis CT done on 08/23/19, showed no evidence of nephrolithiasis, no hernia, no aortic aneurysm, cholelithiasis is noted within the biliary duct but no evidence of cholecystitis. Lumbar spine MRI was done on 08/23/19, which showed no epidural abscess, significant degenerative disk disease, and mild age degenerative findings as above without significant central canal stenosis. CONSULTANTS DURING THIS HOSPITALIZATION: None. ITEMS TO FOLLOW UP ON STATUS POST DISCHARGE: 1. Acute on chronic low back pain, seems consistent with DJD. The patient did well with physical therapy and conservative management. This could be continued by outpatient primary care. 2. Incidental lumbar spine CT findings. There was evidence of left gonadal dilatation, which could be seen in pelvic congestion syndrome. She has no symptoms and this incidental finding can be followed up clinically by primary care. 3. Hematuria. She did have microscopic hematuria on this admission. Her urine culture was negative. This can be followed up as an outpatient as she stays asymptomatic at this time and referral to Urology could be warranted if her asymptomatic microscopic hematuria is persistent. She could be referred for a cystoscopy if indicative. TIME SPENT: Forty-five minutes was spent on the planning of this discharge with over half of that was spent directly at the bedside of the patient providing direct patient care and coordinating care. If there are any questions about the care of this patient during this hospitalization, please do not hesitate to reach out and contact me directly, my cell phone is . This discharge summary is a summary of a total of 4 days of hospitalization, does not represent all the care that went on and physical exam was done on day of discharge, could be found on the daily progress note. [id number] #: [id number]
[2019-08-27] MEDS: Naproxen TAB* 250 MG PO SCH (05:39)
[2019-08-27] MEDS: Heparin VIAL(*) 5000 UNITS/ML VIAL (FIVE THOUSAND) SUBCUT SCH (05:40)
[2019-08-27] MEDS: Lidocaine PATCH 5%* 1 PATCH TRANSDERM SCH (10:12)
[2019-08-27] MEDS: Cholecalciferol TAB* 1000 UNITS PO SCH (10:12)
[2019-08-27 12:03] VITALS: BP 103/37
== END 2019-08-27 14:20 | disposition home or self-care (01) ==
LOC: ED 11:07 → MEDTELE 08-24 00:24
PROVIDERS: ADMIT Student in an Organized Health Care Education/Training Program; ATTEND Internal Medicine
DX: M54.5 Low back pain (principal); G89.29 Other chronic pain; F31.9 Bipolar disorder, unspecified; E87.1 Hypo-osmolality and hyponatremia; M85.80 Other specified disorders of bone density and structure, unspecified site; J45.909 Unspecified asthma, uncomplicated; R50.9 Fever, unspecified; R31.9 Hematuria, unspecified; E78.1 Pure hyperglyceridemia; Z79.899 Other long term (current) drug therapy
CPT/HCPCS: 36415; 71045; 72131; 72158; 74176; 80048; 80053; 81003; 81015; 82550; 84443; 85025; 85652; 86140; 86141; 87086; 94660; 96365; 96366; 96372; 96375; 99284; A9270-GY; A9579; G0378; G8978-GP-CK; G8979-GP-CI; J0696; J1644; J1885; J2270; J2405